=== PATIENT | female | born 1995 | race Caucasian/White ===

== ENCOUNTER 2018-09-30 22:01 | Emergency (ER) | payer OTHER ==
[~2018-09-30] VITALS: Ht 177.8 cm; Wt 136.5 kg
[2018-09-30 22:16] VITALS: Ht 177.8 cm; Wt 136.5 kg
[2018-10-01 00:02] VITALS: BP 139/85
== END 2018-10-01 00:03 | disposition home or self-care (01) ==
LOC: ED 22:01
DX: N39.0 Urinary tract infection, site not specified (principal)